=== PATIENT | male | born 2005 | race Caucasian/White ===

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

== ENCOUNTER 2023-03-17 01:23 | Emergency (ER) | payer OTHER ==
[~2023-03-17] VITALS: Ht 190.5 cm; Wt 81.6 kg
[~2023-03-17 01:23] MED LIST changes: +CHLO473M5 PO; +DIPH25CA83 PO
[2023-03-17 01:34] VITALS: BP_SYST 162; PULSE 107; RESP 20; TEMP 98.2; O2SAT 99
[2023-03-17 03:24] VITALS: BP_SYST 140; PULSE 80; RESP 20; TEMP 98.2; O2SAT 99
[2023-03-17] MEDS ORDERED: IBUPROFEN 600 MG TABLET ONE (03:26)
[2023-03-17] MEDS ORDERED: IBUPROFEN 600 MG TABLET PO ONE (03:30)
== END 2023-03-17 03:24 | disposition home or self-care (01) ==
LOC: SED 01:23
DX: S83.91XA Sprain of unspecified site of right knee, initial encounter (principal); S00.83XA Contusion of other part of head, initial encounter; Z79.899 Other long term (current) drug therapy; W18.39XA Other fall on same level, initial encounter; Y93.89 Activity, other specified; Y92.89 Other specified places as the place of occurrence of the external cause; Y99.8 Other external cause status
CPT/HCPCS: 70486-TC; 73560-TC; 76376; 99284

== ENCOUNTER 2023-09-11 14:10 | Emergency (ER) | payer OTHER ==
[~2023-09-11] VITALS: Ht 193 cm; Wt 81.6 kg
[2023-09-11 14:10] VITALS: PULSE 95; RESP 18; TEMP 97.1; O2SAT 97
[2023-09-11 15:44] VITALS: BP_SYST 104
== END 2023-09-11 15:38 | disposition home or self-care (01) ==
LOC: SED 14:10
DX: I86.1 Scrotal varices (principal); N43.3 Hydrocele, unspecified; Z98.890 Other specified postprocedural states; Z79.899 Other long term (current) drug therapy
CPT/HCPCS: 76870; 99284

== ENCOUNTER 2024-01-06 13:43 | Emergency (ER) | payer OTHER ==
[~2024-01-06] VITALS: Ht 188 cm; Wt 81.6 kg
[2024-01-06 13:59] VITALS: BP_SYST 127; PULSE 79; RESP 16; TEMP 97.4; O2SAT 99
[2024-01-06 15:31] LABS: BASOPHILS % (AUTO) 0.4 % (0.0-2.0); EOSINOPHILS # (AUTO) 0.1 K/uL (0.0-0.4); EOSINOPHILS % (AUTO) 1.2 % (0.0-4.0); HEMATOCRIT 41.5 % (36-54); HEMOGLOBIN 14.7 g/dL (14.0-18.0); LYMPHOCYTES # (AUTO) 1.6 K/uL (1.0-5.5); LYMPHOCYTES % (AUTO) 21.1 % (20.5-51.5); MEAN CORPUSCULAR HEMOGLOBIN 31 pg (27-31); MEAN CORPUSCULAR HGB CONC 35 % (32-36); MEAN CORPUSCULAR VOLUME 87 fL (79.0-98.0); MONOCYTES # (AUTO) 0.8 K/uL (0.0-1.0); MONOCYTES % (AUTO) 10.5 % (1.7-9.3); NEUTROPHILS # (AUTO) 5.2 K/uL (1.8-7.7); NEUTROPHILS % (AUTO) 66.8 % (40.0-70.0); PLATELET COUNT (AUTO) 215 K/uL (130-430); RED BLOOD CELL COUNT(AUTO) 4.79 MIL/uL (4.2-6.2); RED CELL DISTRIBUTION WIDTH 13.5 % (9.0-15.0); WHITE BLOOD COUNT (AUTO) 7.8 K/uL (4.5-11.0)
[2024-01-06 16:00] LABS: CALCIUM 9.7 mg/dL (8.4-11.0); CREATININE 1.08 mg/dL (0.55-1.30); POTASSIUM 4.3 mmol/L (3.5-5.1)
[2024-01-06 16:59] VITALS: BP_SYST 132; PULSE 74; RESP 16; TEMP 97.4; O2SAT 99
== END 2024-01-06 16:57 | disposition home or self-care (01) ==
LOC: SED 13:43
DX: R59.0 Localized enlarged lymph nodes (principal); Z79.899 Other long term (current) drug therapy; Z79.2 Long term (current) use of antibiotics
CPT/HCPCS: 36415; 70490; 80048; 83605; 85025; 99284